=== PATIENT | female | born 1990 | race African-American/Black ===

== ENCOUNTER 2017-09-17 18:59 | Emergency (ER) | payer OTHER ==
[~2017-09-17] VITALS: Ht 160 cm; Wt 81.6 kg
[2017-09-17 19:04] VITALS: Ht 160 cm; Wt 81.6 kg
[2017-09-17 21:50] VITALS: BP 132/71
== END 2017-09-17 21:51 | disposition home or self-care (01) ==
LOC: ED 18:59
DX: R56.9 Unspecified convulsions (principal); I10 Essential (primary) hypertension; E66.01 Morbid (severe) obesity due to excess calories; Z91.012 Allergy to eggs; Z88.5 Allergy status to narcotic agent; Z91.09 Other allergy status, other than to drugs and biological substances
CPT/HCPCS: J2060